=== PATIENT | female | born 1960 | race Caucasian/White ===

== ENCOUNTER → 2016-09-19 | Outpatient (CLI) | payer OTHER ==
--- NOTE | 2016-09-19 16:40 | US ---
EXAMINATION TYPE: US thyroid st tissue head/neck DATE OF EXAM: 09/19/2016 4:14 PM COMPARISON: NONE CLINICAL HISTORY: thyromegaly; hoarseness; on thyroid meds x years GLAND SIZE: Right Lobe: 3.2 x 0.8 x 0.8cm Overall Parenchyma: homogenous Left Lobe: 3.1 x 0.8 x 0.9cm Overall Parenchyma: homogeneous Isthmus Thickness: 0.3cm NODULES RIGHT: # of nodules measured on right: 0 LEFT: # of nodules measured on left: 1 1. 0.2 x 0.1 x 0.1 cm hyperechoic nodule at the mid pole with well-defined margins. This nodule is wide as is tall and shows no intranodular vascularity. Prior size: no prior ISTHMUS: # of nodules measured in the isthmus: 0 TECHNOLOGIST IMPRESSION: Bilateral neck scanned. Inferior to left thyroid is hyperechoic, solid, hyp erechoic structure may reflect small lymph node. To small to further characterize. Thyroid gland is overall small in size and fairly homogeneous echotexture. No suspicious nodules are evident IMPRESSION: Thyroid gland is small in size, no suspicious greater than 1 cm solid or cystic nodules are evident.
== END | disposition home or self-care (01) ==
LOC: RADUSWWP 15:25
PROVIDERS: ATTEND Family Medicine
DX: E01.0 Iodine-deficiency related diffuse (endemic) goiter (principal)
CPT/HCPCS: 76536

== ENCOUNTER 2017-02-21 18:56 | Inpatient (IN) | payer OTHER ==
--- NOTE | 2017-02-21 19:46 | XR ---
EXAMINATION TYPE: XR finger RT DATE OF EXAM: 02/21/2017 COMPARISON: NONE HISTORY: Cat bite injury with pain TECHNIQUE: 3 views of right thumb are obtained. FINDINGS: No acute fracture or dislocation is evident. Joint spaces are preserved. Overlying soft tis isaias is unremarkable without radiodense foreign body identified. IMPRESSION: Unremarkable study.
[2017-02-21 20:15] LABS: Basophils # (A) 0.1 k/uL (0-0.2); Basophils % (A) 1 %; CH 31.2; CHCM 34.3; Eosinophils # (A) 0.1 k/uL (0-0.7); Eosinophils % (A) 1 %; HCT 36.5 % (34.0-46.0); HDW 2.81; HGB 12.4 gm/dL (11.4-16.0); Luc # (Auto) 0.17; Luc % (Auto) 2; Lymphocytes # (A) 1.8 k/uL (1.0-4.8); Lymphocytes % (A) 24 %; MCH 31.1 pg (25.0-35.0); MCHC 33.9 g/dL (31.0-37.0); MCV 91.7 fL (80.0-100.0); Mean Platelet Volume 6.9; Monocytes # (A) 0.5 k/uL (0-1.0); Monocytes % (A) 6 %; Neutrophils # (A) 4.9 k/uL (1.3-7.7); Neutrophils % (A) 65 %; RBC 3.98 m/uL (3.80-5.40); RDW 14.5 % (11.5-15.5); WBC 7.6 k/uL (3.8-10.6); WBC (Perox) 7.57
--- NOTE | 2017-02-21 20:16 | ED ---
Animal Bite HPI - General Source: patient Mode of arrival: ambulatory Limitations: no limitations <Jordan Delvalle - Last Filed: 02/21/17 20:02> <Mason Smith - Last Filed: 02/21/17 21:15> - General Chief Complaint: Animal Bite Stated Complaint: cat bite 02/21/17 - History of Present Illness Initial Comments: Patient is a 56-year-old right-handed female presenting to the emergency department with chief complaint of cat bite to her right hand. Onset of bite approximately 24 hours ago. Patient states that her cat got outside and she was picking it up when it bit her hand. Patient states that she washed her hands with soap and water. Patient is now concerned because she has red streaks running up her right arm and has slight pain under her right armpit. Patient denies recent illness, fevers, nausea, vomiting, shortness of breath, chest pain, or abdominal pain. Patient's last tetanus shot was in 2012. Patient states that her cat is up-to-date on rabies shot. (Jordan Delvalle) - Related Data Allergies Allergy/AdvReac Type Severity Reaction Status Date / Time amoxicillin [From Augmentin] AdvReac Nausea & Verified 02/21/17 19:15 Vomiting clavulanic acid AdvReac Nausea & Verified 02/21/17 19:15 [From Augmentin] Vomiting Review of Systems ROS Other: All systems not noted in ROS Statement are negative. <Jordan Delvalle - Last Filed: 02/21/17 20:02> ROS Other: All systems not noted in ROS Statement are negative. <Mason Smith - Last Filed: 02/21/17 21:15> ROS Statement: Those systems with pertinent positive or pertinent negative responses have been documented in the HPI. Past Medical History Past Medical History: Fibromyalgia, Hypertension Additional Past Medical History / Comment(s): hypothyroidism, History of Any Multi-Drug Resistant Organisms: None Reported Past Surgical History: Hysterectomy Additional Past Surgical History / Comment(s): sinus suregery, left thumb surgery. Past Psychological History: No Psychological Hx Reported Smoking Status: Never smoker Past Alcohol Use History: None Reported Past Drug Use History: None Reported <Jordan Delvalle - Last Filed: 02/21/17 20:02> General Exam Limitations: no limitations Right Upper Arm exam: Present: normal inspection, full ROM, tenderness, erythema Elbow exam: Present: normal inspection, full ROM. Absent: tenderness, swelling Neuro motor exam: Present: wrist extension intact, thumb opposition intact, thumb IP flexion intact, thumb adduction intact, fingers 2-5 abduction intact Neurosensory exam: Present: 2-point discrimination, radial nerve intact, ulnar nerve intact, median nerve intact Vascular: Present: normal capillary refill, radial pulse, brachial pulse, ulnar pulse. Absent: vascular compromise <Jordan Delvalle - Last Filed: 02/21/17 20:02> <Mason Smith - Last Filed: 02/21/17 21:15> - General Exam Comments Initial Comments: GENERAL: Pt awake and alert, well-appearing, well-nourished, and in no acute distress. HEAD: Atraumatic, normocephalic. EYES: Pupils equal, round, and reactive to light, extraocular movements intact, sclera anicteric, conjunctiva are normal. ENT: Oropharynx clear without exudates. Moist mucous membranes. NECK:Normal range of motion, supple without lymphadenopathy or JVD. LUNGS: Breath sounds clear to auscultation bilaterally. No wheezes, rales, or rhonchi. HEART: Heart S1, S2, no S3 or S4. Regular rate and rhythm. No murmurs, rubs or gallops. ABDOMEN: Soft, nontender, nondistended, normoactive bowel sounds. No guarding, no rebound. No masses or organomegaly appreciated. EXTREMITIES: Right hand punctuate wound to palmar surface proximal to thumb with mild swelling and extensive erythema extending up patient's right ventral forearm. No purulent drainage noted. NEUROLOGICAL: Pt oriented x 3. No focal deficits noted. Strength and sensation grossly intact. PSYCH: Normal mood, normal affect. SKIN: Warm, dry. (Jordan Delvalle) Medical Decision Making <Jordan Delvalle - Last Filed: 02/21/17 20:02> - Lab Data Result diagrams: 02/21/17 20:00 02/21/17 20:00 <Mason Smith - Last Filed: 02/21/17 21:15> - Medical Decision Making Patient was bitten approximately 24 hours ago by the family. He since developed infection from dominant right thumb lymphangitis radiating up toward the elbow and mild beginning of lymphadenitis in the epitrochlear node. ( Mason Smith) - Lab Data Lab Results 02/21/17 02/21/17 Range/Units 20:00 20:00 WBC 7.6 (3.8-10.6) k/uL RBC 3.98 (3.80-5.40) m/uL Hgb 12.4 (11.4-16.0) gm/dL Hct 36.5 (34.0-46.0) % MCV 91.7 (80.0-100.0) fL MCH 31.1 (25.0-35.0) pg MCHC 33.9 (31.0-37.0) g/dL RDW 14.5 (11.5-15.5) % Plt Count 249 (150-450) k/uL Neutrophils % 65 % Lymphocytes % 24 % Monocytes % 6 % Eosinophils % 1 % Basophils % 1 % Neutrophils # 4.9 (1.3-7.7) k/uL Lymphocytes # 1.8 (1.0-4.8) k/uL Monocytes # 0.5 (0-1.0) k/uL Eosinophils # 0.1 (0-0.7) k/uL Basophils # 0.1 (0-0.2) k/uL Sodium 139 (137-145) mmol/L Potassium 3.0 L* (3.5-5.1) mmol/L Chloride 104 (98-107) mmol/L Carbon Dioxide 22 (22-30) mmol/L Anion Gap 13 mmol/L BUN 14 (7-17) mg/dL Creatinine 0.70 (0.52-1.04) mg/dL Est GFR (MDRD) Af Amer >60 (>60 ml/min/1.73 sqM) Est GFR (MDRD) Non-Af >60 (>60 ml/min/1.73 sqM) Glucose 98 (74-99) mg/dL Calcium 9.0 (8.4-10.2) mg/dL Total Bilirubin 0.4 (0.2-1.3) mg/dL AST 20 (14-36) U/L ALT 30 (9-52) U/L Alkaline Phosphatase 94 (38-126) U/L Total Protein 6.5 (6.3-8.2) g/dL Albumin 3.9 (3.5-5.0) g/dL Disposition <Jordan Delvalle - Last Filed: 02/21/17 20:02> <Mason Smith - Last Filed: 02/21/17 21:15> Clinical Impression: Cat bite Disposition: ADMITTED IP TO THIS HOSP Condition: Serious Instructions: Animal Bite (ED) Referrals: Mason Seo DO [Primary Care Provider] - 1-2 days
[2017-02-21 20:32] LABS: ALT 30 U/L (9-52); AST 20 U/L (14-36); Alkaline Phosphatase 94 U/L (38-126); Anion Gap 13 mmol/L; Blood Urea Nitrogen 14 mg/dL (7-17); Carbon Dioxide 22 mmol/L (22-30); Chloride 104 mmol/L (98-107); Glucose 98 mg/dL (74-99); Non-African American GFR(MDRD) >60 (>60 ml/min/1.73 sqM); Sodium 139 mmol/L (137-145); Total Bilirubin 0.4 mg/dL (0.2-1.3); Total Protein 6.5 g/dL (6.3-8.2)
[2017-02-21] MEDS ORDERED: metroNIDAZOLE-NS PMX 500 MG in SALINE 1 100ML.BAG IVPB STA (20:50)
[2017-02-21] MEDS ORDERED: LEVOFLOXACIN 500MG-D5W PMX 500 MG in DEXTROSE/WATER 1 100ML.BAG IVPB STA (20:50)
[2017-02-21] MEDS ORDERED: POTASSIUM CHLORIDE ER 20 MEQ TAB.ER PO STA (21:14)
[2017-02-21] MEDS ORDERED: ACETAMINOPHEN TAB 325 MG TAB PO PRN (21:15)
[2017-02-21] MEDS ORDERED: NALOXONE 0.4 MG/ML 1 ML VIAL IV PRN (21:15)
[2017-02-21] MEDS ORDERED: LORazepam 1 MG TAB PO PRN (23:08)
[2017-02-21] MEDS: HYDROcodone/APAP 10-325MG 1 EACH TAB PO PRN (23:10)
[2017-02-21 23:29] VITALS: BMI 30.7
[2017-02-22] MEDS: metroNIDAZOLE-NS PMX 500 MG in SALINE 1 100ML.BAG IVPB SCH ×3 (01:29→15:50)
[2017-02-22] MEDS: SODIUM CHLORIDE 0.9% 1,000 ML IV SCH ×2 (01:30→17:56)
[2017-02-22] MEDS: DICLOFENAC SODIUM GEL 100 GM TUBE TOPICAL PRN (05:18)
[2017-02-22 07:19] LABS: Basophils % (A) 0 %; CH 30.7; CHCM 33.6; Eosinophils % (A) 1 %; HCT 33.7 % (34.0-46.0); HDW 2.72; HGB 10.9 gm/dL (11.4-16.0); Luc # (Auto) 0.09; Luc % (Auto) 3; Lymphocytes # (A) 1.3 k/uL (1.0-4.8); Lymphocytes % (A) 35 %; MCH 29.9 pg (25.0-35.0); MCHC 32.5 g/dL (31.0-37.0); Mean Platelet Volume 6.9; Monocytes # (A) 0.3 k/uL (0-1.0); Monocytes % (A) 7 %; Neutrophils % (A) 54 %; RBC 3.66 m/uL (3.80-5.40); RDW 14.3 % (11.5-15.5); WBC 3.7 k/uL (3.8-10.6)
[2017-02-22] MEDS: LEVOTHYROXINE 50 MCG TAB PO SCH (07:57)
[2017-02-22] MEDS: HYDROCHLOROTHIAZIDE 12.5 MG CAP PO SCH (07:57)
[2017-02-22] MEDS: POTASSIUM CHLORIDE ER 20 MEQ TAB.ER PO SCH ×2 (07:58→20:48)
[2017-02-22] MEDS: HYDROcodone/APAP 10-325MG 1 EACH TAB PO PRN ×3 (07:58→20:48)
[2017-02-22] MEDS: LOSARTAN 50 MG TAB PO SCH (08:02)
[2017-02-22] MEDS: FAMOTIDINE 20 MG TAB PO SCH ×2 (09:00→22:04)
--- NOTE | 2017-02-22 16:31 | P.HPIM ---
History of Present Illness H&P Date: 02/22/17 Chief Complaint: Right arm redness after cat Bite This is a 56-year-old lady patient of Dr. Seo. She has underlying history of asthma fibromyalgia hypertension hypothyroidism and a heart murmur admitted to the hospital secondary to climbing up the right arm after cat bite 24 hours prior to admission. Patient's arm is painful red and is consistent with lymphangitis, no previous antibiotic prior to her admission, she mentions this is a house cat one of her granddaughters, up-to-date with her vaccination, the cat was anxious as there was a birthday republican going on and when she picked the Cat, it Bit her on the forearm.. She was seen in emergency room secondary to a wide line following lymph channels on the inner forearm. She was seen consultation by infectious disease Dr. Blank, and is receiving IV vancomycin and IV Levaquin patient has insulin she has GI side effects to Augmentin in the past Review of Systems Constitutional: Reports as per HPI, Denies anorexia, Denies chills, Denies chronic headaches, Denies chronic pain, Denies daytime sleepiness, Denies fatigue, Denies fever, Denies lethargy, Denies malaise, Denies night sweats, Denies poor appetite, Denies sweats, Denies weakness, Denies weight gain, Denies weight loss Ears, nose, mouth and throat: Reports as per HPI, Denies ant. neck pain, Denies bleeding gums, Denies dental pain, Denies dysphagia, Denies epistaxis, Denies headache, Denies hoarseness, Denies mouth pain, Denies nasal congestion, Denies nasal discharge, Denies neck fullness/pressure, Denies neck lump, Denies nose pain, Denies odynophagia, Denies post-nasal drip, Denies sinus pain, Denies sinus pressure, Denies swelling in mouth, Denies swelling in throat, Denies sore throat, Denies vertigo, Denies voice changes Cardiovascular: Reports as per HPI, Denies chest pain, Denies claudication, Denies decreased exercise tolerance, Denies dyspnea on exertion, Denies edema, Denies high blood pressure, Denies irregular heart beat, Denies leg edema, Denies lightheadedness, Denies orthopnea, Denies palpitations, Denies paroxysmal nocturnal dyspnea, Denies phlebitis, Denies rapid heart beat, Denies shortness of breath, Denies syncope Respiratory: Reports as per HPI, Denies congestion, Denies cough, Denies cough with sputum, Denies dyspnea, Denies excessive sputum, Denies hemoptysis, Denies home oxygen, Denies pain, Denies pain on inspiration, Denies pleurisy, Denies respiratory infections, Denies sleep apnea, Denies snoring, Denies wheezing Gastrointestinal: Reports as per HPI, Denies abdominal pain, Denies belching, Denies bloating, Denies BRBPR, Denies change in bowel habits, Denies coffee ground emesis, Denies constipation, Denies diarrhea, Denies dyspepsia, Denies early satiety, Denies excessive gas, Denies heartburn, Denies hematemesis, Denies hematochezia, Denies indigestion, Denies jaundice, Denies lactose intolerance, Denies loss of appetite, Denies melena, Denies nausea, Denies vomiting Genitourinary: Reports as per HPI, Denies abnormal vaginal bleeding, Denies decreased libido, Denies difficulty conceiving, Denies difficulty voiding, Denies dysmenorrhea, Denies dyspareunia, Denies dysuria, Denies flank pain, Denies genital sores, Denies hematuria, Denies hot flashes, Denies incomplete emptying, Denies kidney stones, Denies menorrhagia, Denies mixed incontinence, Denies nocturia, Denies pelvic pain, Denies post void dribbling, Denies , Denies prolapse symptoms, Denies stress incontinence, Denies urge incontinence , Denies urgency, Denies urinary frequency, Denies vaginal discharge, Denies vaginal dryness, Denies vaginal itching, Denies vaginal odor Menstruation: Reports as per HPI, Denies amenorrhea, Denies amenorrhea on BC, Denies currently menstrual, Denies cycle < 21 days, Denies cycle > 35 days, Denies cycle variable, Denies menses 1-7 days, Denies menses 8 or > days, Denies menses variable, Denies period heavy, Denies period light, Denies period normal, Denies period spotting, Denies post hysterectomy, Denies postmenopausal , Denies premenarcheal Musculoskeletal: Reports as per HPI, Denies arm numbness/tingling, Denies atrophy, Denies fractures, Denies frequent falls, Denies gait dysfunction, Denies hot joints, Denies leg numbness/tingling, Denies limitation of motion, Denies loss of height, Denies low back pain, Denies morning stiffness, Denies muscle cramps, Denies muscle weakness, Denies myalgias, Denies neck pain, Denies neck stiffness, Denies prior amputations, Denies redness of joints, Denies shooting arm pain, Denies shooting leg pain Integumentary: Reports as per HPI, Reports color changes, Reports rash, Reports striae, Reports wounds Neurological: Reports as per HPI, Denies aphasia, Denies ataxia, Denies balance difficulties, Denies burning pain, Denies change in mentation, Denies change in smell/taste, Denies change in speech, Denies confusion, Denies convulsions, Denies double vision, Denies gait dysfunction, Denies head injury, Denies headaches, Denies hearing difficulties, Denies lack of coordination, Denies loss of vision, Denies memory loss, Denies migraines, Denies motor disturbance, Denies numbness, Denies paralysis, Denies paresthesias, Denies seizures, Denies sensory deficit, Denies spasticity, Denies syncope, Denies tic, Denies tingling , Denies transient paralysis, Denies tremors, Denies vertigo, Denies weakness, Denies visual changes Psychiatric: Reports as per HPI, Denies anhedonia, Denies anxiety, Denies anxiety attacks, Denies change in appetite, Denies change in libido, Denies change in sleep habits, Denies confusion, Denies depression, Denies difficulty concentrating, Denies disorientation, Denies hallucinations, Denies hopelessness , Denies hypersomnia, Denies insomnia, Denies irritability, Denies memory loss, Denies mood swings, Denies paranoia, Denies sadness/tearfulness, Denies sleep disturbances, Denies suicidal ideation Endocrine: Reports as per HPI, Denies cold intolerance, Denies deepening of the voice, Denies excessive sweating, Denies excessive thirst, Denies fatigue, Denies flushing, Denies heat intolerance, Denies high blood sugars, Denies increase in ring/shoe/hat size, Denies low blood sugars, Denies nocturia, Denies palpitations, Denies polydipsia, Denies polyphagia, Denies polyuria, Denies proptosis, Denies recent glucocorticoid use, Denies thyroid mass, Denies weight change Hematologic/Lymphatic: Reports as per HPI Allergic/Immunologic: Reports as per HPI Past Medical History Past Medical History: Asthma, Fibromyalgia, Hypertension Additional Past Medical History / Comment(s): hypothyroidism, heart murmur History of Any Multi-Drug Resistant Organisms: None Reported Past Surgical History: Hysterectomy Additional Past Surgical History / Comment(s): sinus surgery X2, left thumb surgery. Additional Past Anesthesia/Blood Transfusion Reaction / Comment(s): reaction d\ t asthma- pt states nebulizer treatment was given that helped next administrations of anesthesia Past Psychological History: No Psychological Hx Reported Smoking Status: Never smoker Past Alcohol Use History: None Reported Past Drug Use History: None Reported - Past Family History Mother Family Medical History: Neurologic Disorder (Parkinson's) Father Family Medical History: No Reported History Brother(s) Family Medical History: Thyroid Disorder Sister(s) Family Medical History: No Reported History Daughter(s) Family Medical History: No Reported History Son(s) Family Medical History: No Reported History Medications and Allergies Home Medications Medication Instructions Recorded Confirmed Type Diclofenac Sodium Gel [Voltaren 2 gm TOPICAL BID PRN 02/21/17 02/22/17 History Gel] HYDROcodone/APAP 10-325MG [Byram 1 tab PO Q6HR PRN 02/21/17 02/22/17 History 10-325] Irbesartan/Hydrochlorothiazide 1 tab PO DAILY 02/21/17 02/22/17 History [Irbesartan-Hctz 150-12.5 mg Tb] LORazepam [Ativan] 2 mg PO TID PRN 02/21/17 02/22/17 History Levothyroxine Sodium [Synthroid] 50 mcg PO DAILY 02/21/17 02/22/17 History Sertraline [Zoloft] 50 mg PO DAILY PRN 02/21/17 02/22/17 History Budesonide-Formot 160-4.5 Mcg 2 puff INHALATION RT-BID PRN 02/22/17 02/22/17 History [Symbicort 160-4.5 Mcg Inhaler] Allergies Allergy/AdvReac Type Severity Reaction Status Date / Time amoxicillin [From Augmentin] AdvReac Nausea & Verified 02/22/17 08:43 Vomiting clavulanic acid AdvReac Nausea & Verified 02/22/17 08:43 [From Augmentin] Vomiting Physical Exam Vitals: Vital Signs Temp Pulse Pulse Resp BP BP Pulse Ox 02/22/17 08:00 62 16 02/22/17 01:15 98 F 62 16 145/79 99 02/21/17 23:13 97.3 F L 60 16 153/75 98 02/21/17 22:13 98.6 F 65 18 152/83 97 02/21/17 19:04 99.1 F 69 16 139/75 97 Intake and Output 02/21/17 02/22/17 02/22/17 22:59 06:59 14:59 Intake Total 200 950 120 Balance 200 950 120 Intake: Amount of Fluid Infused ( 200 ml) Intake, IV Titration 700 Amount Sodium Chloride 0.9% 1, 600 000 ml @ 80 mls/hr IV . [id number] TEENA Rx#:[id number] metroNIDAZOLE-NS PMX 500 100 mg In Saline 1 100ml.bag @ 100 mls/hr IVPB Q8HR TEENA Rx#:[id number] Oral 250 120 Other: Voiding Method Toilet Toilet # Voids 2 2 Weight 86.183 kg 86.183 kg 86.183 kg Patient Weight 02/23/17 06:59 Weight 86.183 kg - Constitutional General appearance: average body habitus, cooperative, no acute distress, obese - EENT Eyes: anicteric sclerae, EOMI, PERRLA, dentition normal ENT: NA/AT, normal oropharynx - Neck Neck: normal ROM - Respiratory Respiratory: bilateral: CTA, negative: dullness, rales, rhonchi, wheezing - Cardiovascular Rhythm: regular Heart sounds: normal: S1, S2 Abnormal Heart Sounds: no systolic murmur, no diastolic murmur, no rub, no S3 Gallop, no S4 Gallop, no click, no other - Gastrointestinal General gastrointestinal: normal bowel sounds, soft - Integumentary Integumentary: normal, rash (2 puncture barriga in the mid forearm, with streaks of red band wide, coming up from the distal radius To the elbow region,) - Neurologic Neurologic: CNII-XII intact - Psychiatric Psychiatric: A&O x's 3, appropriate affect, intact judgment & insight Results CBC & Chem 7: 02/22/17 06:16 02/21/17 20:00 Labs: Abnormal Lab Results - Last 24 Hours (Table) 02/21/17 02/22/17 Range/Units 20:00 06:16 WBC 3.7 L (3.8-10.6) k/uL RBC 3.66 L (3.80-5.40) m/uL Hgb 10.9 L (11.4-16.0) gm/dL Hct 33.7 L (34.0-46.0) % Potassium 3.0 L* (3.5-5.1) mmol/L Laboratory Results WBC 3.7 k/uL (3.8-10.6) L 02/22/17 06:16 RBC 3.66 m/uL (3.80-5.40) L 02/22/17 06:16 Hgb 10.9 gm/dL (11.4-16.0) L 02/22/17 06:16 Hct 33.7 % (34.0-46.0) L 02/22/17 06:16 MCV 92.0 fL (80.0-100.0) 02/22/17 06:16 MCH 29.9 pg (25.0-35.0) 02/22/17 06:16 MCHC 32.5 g/dL (31.0-37.0) 02/22/17 06:16 RDW 14.3 % (11.5-15.5) 02/22/17 06:16 Plt Count 193 k/uL (150-450) 02/22/17 06:16 Neutrophils % 54 % 02/22/17 06:16 Lymphocytes % 35 % 02/22/17 06:16 Monocytes % 7 % 02/22/17 06:16 Eosinophils % 1 % 02/22/17 06:16 Basophils % 0 % 02/22/17 06:16 Neutrophils # 2.0 k/uL (1.3-7.7) 02/22/17 06:16 Lymphocytes # 1.3 k/uL (1.0-4.8) 02/22/17 06:16 Monocytes # 0.3 k/uL (0-1.0) 02/22/17 06:16 Eosinophils # 0.0 k/uL (0-0.7) 02/22/17 06:16 Basophils # 0.0 k/uL (0-0.2) 02/22/17 06:16 Sodium 139 mmol/L (137-145) 02/21/17 20:00 Potassium 3.0 mmol/L (3.5-5.1) L* 02/21/17 20:00 Chloride 104 mmol/L (98-107) 02/21/17 20:00 Carbon Dioxide 22 mmol/L (22-30) 02/21/17 20:00 Anion Gap 13 mmol/L 02/21/17 20:00 BUN 14 mg/dL (7-17) 02/21/17 20:00 Creatinine 0.70 mg/dL (0.52-1.04) 02/21/17 20:00 Est GFR (MDRD) Af Amer >60 (>60 ml/min/1.73 sqM) 02/21/17 20:00 Est GFR (MDRD) Non-Af >60 (>60 ml/min/1.73 sqM) 02/21/17 20:00 Glucose 98 mg/dL (74-99) 02/21/17 20:00 Calcium 9.0 mg/dL (8.4-10.2) 02/21/17 20:00 Total Bilirubin 0.4 mg/dL (0.2-1.3) 02/21/17 20:00 AST 20 U/L (14-36) 02/21/17 20:00 ALT 30 U/L (9-52) 02/21/17 20:00 Alkaline Phosphatase 94 U/L (38-126) 02/21/17 20:00 Total Protein 6.5 g/dL (6.3-8.2) 02/21/17 20:00 Albumin 3.9 g/dL (3.5-5.0) 02/21/17 20:00 Thrombosis Risk Factor Assmnt - DVT/VTE Prophylaxis DVT/VTE Prophylaxis: Low risk, early ambulation encouraged - Choose All That Apply Each Factor Represents 1 point: Age 41-60 years Other Risk Factors: No Other congenital or acquired thrombophilia - If yes, enter type in comment: No Thrombosis Risk Factor Assessment Total Risk Factor Score: 1 Thrombosis Risk Factor Assessment Level: Low Risk Assessment and Plan Plan: 1. Cat bite cellulitis with ascending lymphangitis on involving the right upper extremity, lymphadenopathy noted, patient currently is on IV Levaquin and metronidazole, infectious disease consultation has been made pain control with hydrocodone, patient most likely will be placed on oral Augmentin she has some GI side effects which can be bypassed next 2. Asthma without any exacerbation on Symbicort 160 when necessary 3. Fibromyalgia stable on chronic Byram 4. Hypertension stable on irbesartan and hydrochlorothiazide 50/12.5 5. Immunization tetanus diphtheria vaccine given 2012, up-to-date
[2017-02-22] MEDS: AMPICILLIN-SULBACTAM 3 GM in SODIUM CHLORIDE 0.9% 100 ML IVPB SCH (17:53)
[2017-02-22] MEDS ORDERED: LEVOFLOXACIN 500MG-D5W PMX 500 MG in DEXTROSE/WATER 1 100ML.BAG IVPB SCH (21:00)
[2017-02-23] MEDS: AMPICILLIN-SULBACTAM 3 GM in SODIUM CHLORIDE 0.9% 100 ML IVPB SCH ×3 (05:35→11:21)
[2017-02-23] MEDS: HYDROcodone/APAP 10-325MG 1 EACH TAB PO PRN (05:36)
[2017-02-23 07:20] VITALS: BP 123/79; PULSE 62; RESP 14; TEMP 98.3
[2017-02-23 07:30] LABS: Basophils % (A) 1 %; CH 30.4; CHCM 33.3; Eosinophils % (A) 1 %; HDW 2.73; HGB 11.9 gm/dL (11.4-16.0); Luc % (Auto) 2; Lymphocytes # (A) 1.5 k/uL (1.0-4.8); Lymphocytes % (A) 35 %; MCH 30.1 pg (25.0-35.0); MCHC 32.9 g/dL (31.0-37.0); MCV 91.6 fL (80.0-100.0); Mean Platelet Volume 6.8; Monocytes # (A) 0.2 k/uL (0-1.0); Monocytes % (A) 6 %; Neutrophils # (A) 2.4 k/uL (1.3-7.7); Neutrophils % (A) 56 %; RBC 3.93 m/uL (3.80-5.40); RDW 14.3 % (11.5-15.5); WBC 4.2 k/uL (3.8-10.6); WBC (Perox) 4.38
[2017-02-23 07:51] LABS: Anion Gap 8 mmol/L; Blood Urea Nitrogen 7 mg/dL (7-17); Carbon Dioxide 27 mmol/L (22-30); Chloride 108 mmol/L (98-107); Glucose 110 mg/dL (74-99); Non-African American GFR(MDRD) >60 (>60 ml/min/1.73 sqM); Potassium 3.3 mmol/L (3.5-5.1); Sodium 143 mmol/L (137-145)
[2017-02-23] MEDS: LOSARTAN 50 MG TAB PO SCH (08:41)
[2017-02-23] MEDS: FAMOTIDINE 20 MG TAB PO SCH (08:41)
[2017-02-23] MEDS: LEVOTHYROXINE 50 MCG TAB PO SCH (08:41)
[2017-02-23] MEDS: HYDROCHLOROTHIAZIDE 12.5 MG CAP PO SCH (08:41)
[2017-02-23] MEDS: POTASSIUM CHLORIDE ER 20 MEQ TAB.ER PO SCH ×3 (08:42→15:09)
--- NOTE | 2017-02-23 09:02 | CONS ---
DATE OF CONSULTATION: 02/22/2017 Reason for consultation right hand cat bite cellulitis. HISTORY OF PRESENT ILLNESS: The patient is a 56-year-old female who has been bitten by her cat who just trying to get her inside. The cat did bite her on the base of the thumb with some surrounding laceration. The patient starting having some pain in that area, described to be dull, aching pain, about 2/10 and no radiation. The patient noted to have some swelling and redness and swelling to the forearm area. With that concern, the patient said she did clean the area with soap and water; however, with worsening swelling and redness, she did come to the [facility] ER. Patient evaluated by the ER physician. The patient did have x-rays of the right thumb which was unremarkable. She has been treated with Levaquin and Flagyl because of her allergy to amoxicillin which she described that when she takes it, ( ) on her stomach and ID was consulted for further recommendation regarding antibiotic therapy. REVIEW OF SYSTEMS: CONSTITUTIONAL: Positive for weakness and high-grade fever. EYES: No complaint. ENT: No complaint. RESPIRATORY: No complaint. CARDIOVASCULAR: No complaint. GENITOURINARY: No complaint. GASTROINTESTINAL: No complaint. MUSCULOSKELETAL: As per HPI. INTEGUMENT: As per HPI. PSYCHOLOGICAL: No complaint. NEUROLOGIC: No complaint. Past medical history significant for asthma, fibromyalgia and hypertension, hypothyroidism, heart murmur. PAST SURGICAL HISTORY: Hysterectomy, sinus surgery, lap band surgery. SOCIAL HISTORY: No history of smoking, drinking or drug use. FAMILY HISTORY: Mother with history of Parkinson disease, father with history of thyroid disorder. Allergies to AMOXICILLIN, more than a side effect than to true allergy, could be taken off the chart. MEDICATIONS: The patient is currently on Tylenol, Heyburn, diclofenac, Pepcid, hydrochlorothiazide, Synthroid, Ativan, Cozaar, Narcan, K-Dur, Levaquin and Flagyl. On examination, blood pressure 104/57 with a pulse of 69, temperature 98.1, she is 97% on room air. General description is a middle-aged female, up in the bed in no distress. No tachypnea or accessory muscle of respiration use. HEENT EXAMINATION: No pallor or scleral icterus. Oral mucous membrane is moist. NECK: Trachea central. There is no thyromegaly. LUNGS: Unlabored breathing. Clear to auscultation anteriorly. HEART: S1, S2. Regular rate and rhythm. ABDOMEN: Soft, no tenderness. EXTREMITIES: No edema of the feet. Examination of right hand, some swelling was noticed at the base of the thumb with some swelling, redness and scratch barriga on the palmar aspect of the forearm. No significant fluctuation or drainage was noticed. NEUROLOGICAL: Patient awake, alert, oriented x3. Mood and affect normal. LABS: Hemoglobin is 10.9 with a white count 3.7, potassium low at 3.0. Electrolytes are normal. Liver enzymes are normal with a BUN of 14, creatinine 0.70. X-rays of the hand as mentioned above. DIAGNOSTIC IMPRESSION AND PLAN: 1. Patient with right hand cat bite cellulitis in a patient who does have evidence of lymphangitis, more likely organism would be ( ) pathogen. 2. Patient reporting allergy to amoxicillin/Augmentin with more ( ) more of a side effect rather than a true allergy. PLAN: 1. Amoxicillin allergy should be taken off the chart. 2. Will start the patient on Unasyn 3 gm q.6h. 3. Depending on clinical response in the next 24 to 48 hours, ( ). Will follow this patient along with you.
[2017-02-23] MEDS: DICLOFENAC SODIUM GEL 100 GM TUBE TOPICAL PRN (11:14)
--- NOTE | 2017-02-23 13:31 | P.DS ---
Providers Date of admission: 02/21/17 21:15 Expected date of discharge: 02/23/17 Attending physician: Elli Aiken Consults: 02/21/17 21:15 Consult Physician Stat Consulting Provider: Thien Blank Consult Reason/Comments: Infected Bite left hand Do you want consulting provider notified?: Yes Primary care physician: Mason Seo [facility] Course: This is a 56-year-old lady patient of Dr. Seo. She has underlying history of asthma fibromyalgia hypertension hypothyroidism and a heart murmur admitted to the hospital secondary to climbing up the right arm after cat bite 24 hours prior to admission. Patient's arm is painful red and is consistent with lymphangitis, no previous antibiotic prior to her admission, she mentions this is a house cat one of her granddaughters, up-to-date with her vaccination, the cat was anxious as there was a birthday green party going on and when she picked the Cat, it Bit her on the forearm.. She was seen in emergency room secondary to a wide line following lymph channels on the inner forearm. She was seen consultation by infectious disease Dr. Blank, and is receiving IV vancomycin and IV Levaquin patient has insulin she has GI side effects to Augmentin in the past 02/23: Patient has been seen by Dr. Blank with recommendations to continue Unasyn for now and Augmentin for home. Blood culture showing no growth. Patient's cellulitis is improved and patient will be discharged home today in stable condition. Discharge diagnoses: 1. Cat bite cellulitis with ascending lymphangitis right upper extremity, lymphadenopathy noted 2. Asthma, mild intermittent, without any exacerbation 3. Fibromyalgia stable 4. Hypertension Discharge plan: Home Impression and plan of care have been directed as dictated by the signing physician. Nancy Morel nurse practitioner acting as scribe for signing physician. Patient Condition at Discharge: Good Plan - Discharge Summary New Discharge Prescriptions: New Amoxicillin/Potassium Clav [Augmentin 875-125 Tablet] 1 tab PO Q12HR #20 tab Continue HYDROcodone/APAP 10-325MG [Derby 10-325] 1 tab PO Q6HR PRN PRN Reason: Pain Levothyroxine Sodium [Synthroid] 50 mcg PO DAILY Irbesartan/Hydrochlorothiazide [Irbesartan-Hctz 150-12.5 mg Tb] 1 tab PO DAILY Diclofenac Sodium Gel [Voltaren Gel] 2 gm TOPICAL BID PRN PRN Reason: Pain LORazepam [Ativan] 2 mg PO TID PRN PRN Reason: Anxiety Sertraline [Zoloft] 50 mg PO DAILY PRN PRN Reason: Anxiety Budesonide-Formot 160-4.5 Mcg [Symbicort 160-4.5 Mcg Inhaler] 2 puff INHALATION RT-BID PRN PRN Reason: Shortness Of Breath Discharge Medication List Diclofenac Sodium Gel [Voltaren Gel] 2 gm TOPICAL BID PRN 02/21/17 [History] HYDROcodone/APAP 10-325MG [Derby 10-325] 1 tab PO Q6HR PRN 02/21/17 [History] Irbesartan/Hydrochlorothiazide [Irbesartan-Hctz 150-12.5 mg Tb] 1 tab PO DAILY 02/21/17 [History] LORazepam [Ativan] 2 mg PO TID PRN 02/21/17 [History] Levothyroxine Sodium [Synthroid] 50 mcg PO DAILY 02/21/17 [History] Sertraline [Zoloft] 50 mg PO DAILY PRN 02/21/17 [History] Budesonide-Formot 160-4.5 Mcg [Symbicort 160-4.5 Mcg Inhaler] 2 puff INHALATION RT-BID PRN 02/22/17 [History] Amoxicillin/Potassium Clav [Augmentin 875-125 Tablet] 1 tab PO Q12HR #20 tab 08/30 [Rx] Follow up Appointment(s)/Referral(s): Mason Seo DO [Primary Care Provider] - 1 Week Thien Blank MD [STAFF PHYSICIAN] - 03/05/17 11:15 am (Patient needs to obtain prior authorization) Ambulatory/Diagnostic Orders: Basic Metabolic Panel [LAB.AMB] Location: Determined By Patient Complete Blood Count w/diff [LAB.AMB] Location: Determined By Patient Patient Instructions/Handouts: Animal Bite (ED) Discharge Disposition: HOME SELF-CARE
--- NOTE | 2017-02-23 16:57 | PN ---
DATE OF SERVICE: 02/23/2017 REASON FOR FOLLOWUP: Right hand cat bite cellulitis. INTERVAL HISTORY: The patient is afebrile. She is feeling better. Overall pain and swelling of the right forearm area has improved. The patient denies significant chest pain, shortness of breath or cough. No abdominal pain or any diarrhea. On examination, blood pressure 123/79 with a pulse of 52, temperature 96.3. She is 97% on room air. General description is a middle-aged female lying in bed in no distress. RESPIRATORY SYSTEM: Unlabored breathing. Clear to auscultation anteriorly. HEART: S1, S2. Regular rate and rhythm. ABDOMEN: Soft. Right arm swelling and redness have improved. LABS: Hemoglobin 11.9, white count of 4.2. BUN of 7, creatinine 0.62. DIAGNOSTIC IMPRESSION AND PLAN: Patient with right thumb cat bite cellulitis with cellulitis extending to the forearm. The patient seems to have shown overall improvement on Unasyn. Antibiotic will be switched over to Augmentin for another 10 days with outpatient followup.
== END 2017-02-23 15:30 | disposition home or self-care (01) | DRG 603 ==
LOC: EC 18:56 → 3SUR 21:15
PROVIDERS: ADMIT Family Medicine; ATTEND Family Medicine
DX: L03.011 Cellulitis of right finger (principal); I10 Essential (primary) hypertension; E03.9 Hypothyroidism, unspecified; I89.1 Lymphangitis; M79.7 Fibromyalgia; J45.20 Mild intermittent asthma, uncomplicated; S61.451A Open bite of right hand, initial encounter; Z90.710 Acquired absence of both cervix and uterus; Z98.84 Bariatric surgery status; Z88.0 Allergy status to penicillin; Z79.51 Long term (current) use of inhaled steroids; Z79.899 Other long term (current) drug therapy; Y92.007 Garden or yard of unspecified non-institutional (private) residence as the place of occurrence of the external cause; W55.01XA Bitten by cat, initial encounter
CPT/HCPCS: 36415; 80048; 80053; 85025; 87040

== ENCOUNTER → 2017-03-02 | Outpatient (CLI) | payer OTHER ==
[2017-03-02 12:55] LABS: Basophils % (A) 1 %; CH 30.6; CHCM 33.3; Eosinophils % (A) 1 %; HCT 37.3 % (34.0-46.0); HDW 2.69; HGB 12.3 gm/dL (11.4-16.0); Luc # (Auto) 0.08; Luc % (Auto) 2; Lymphocytes # (A) 1.5 k/uL (1.0-4.8); Lymphocytes % (A) 32 %; MCH 30.6 pg (25.0-35.0); MCHC 33.1 g/dL (31.0-37.0); MCV 92.5 fL (80.0-100.0); Mean Platelet Volume 7.2; Monocytes # (A) 0.2 k/uL (0-1.0); Monocytes % (A) 4 %; Neutrophils # (A) 2.9 k/uL (1.3-7.7); Neutrophils % (A) 61 %; RBC 4.04 m/uL (3.80-5.40); RDW 14.1 % (11.5-15.5); WBC 4.7 k/uL (3.8-10.6)
[2017-03-02 13:01] LABS: Anion Gap 10 mmol/L; Blood Urea Nitrogen 9 mg/dL (7-17); Calcium 9.2 mg/dL (8.4-10.2); Carbon Dioxide 27 mmol/L (22-30); Chloride 105 mmol/L (98-107); Glucose 123 mg/dL (74-99); Non-African American GFR(MDRD) >60 (>60 ml/min/1.73 sqM); Sodium 142 mmol/L (137-145)
[2017-03-02 13:20] LABS: Potassium 2.9 mmol/L (3.5-5.1)
== END | disposition home or self-care (01) ==
LOC: LABWHC1 12:20
PROVIDERS: ATTEND Nurse Practitioner Family
DX: L03.90 Cellulitis, unspecified (principal); E87.6 Hypokalemia
CPT/HCPCS: 36415; 80048; 85025

== ENCOUNTER 2018-06-18 20:46 | Emergency (ER) | payer OTHER ==
--- NOTE | 2018-06-18 21:50 | XR ---
EXAMINATION TYPE: XR foot complete LT DATE OF EXAM: 06/18/2018 COMPARISON: NONE HISTORY: Foot pain TECHNIQUE: 3 views FINDINGS: There is an Achilles calcaneal spur. Metatarsals are intact. I see no fracture nor dislocat ion. IMPRESSION: Calcaneal spurring. No fracture seen.
--- NOTE | 2018-06-18 21:50 | XR ---
EXAMINATION TYPE: XR ankle complete LT DATE OF EXAM: 06/18/2018 COMPARISON: NONE HISTORY: Ankle pain TECHNIQUE: 3 views FINDINGS: Ankle mortise is anatomic. I see no fracture nor dislocation. There is Achilles calcaneal s purring. There is minimal soft tissue swelling. IMPRESSION: Soft tissue swelling. No fracture.
[2018-06-18] MEDS ORDERED: ACETAMINOPHEN TAB 500 MG TAB PO STA (22:01)
[2018-06-18] MEDS ORDERED: IBUPROFEN 800 MG TAB PO STA (22:01)
--- NOTE | 2018-06-18 22:01 | ED ---
Lower Extremity Injury HPI - General Chief Complaint: Extremity Injury, Lower Stated Complaint: Foot/ankle injury Time Seen by Provider: 06/18/18 21:03 Source: patient Mode of arrival: ambulatory Limitations: no limitations - History of Present Illness Initial Comments: This is a 57-year-old female the ER for evaluation patient complains of left ankle pain. [place] she stepped wrong and had a twisting of his left ankle. No other injury noted. Patient is able to bear weight is complaining of pain and swelling MD Complaint: ankle injury, foot injury -: hour(s) Injury: Ankle: Left, Foot: Left Place: home Severity: mild Severity scale (1-10): 2 Improves With: nothing Worsens With: nothing Context: fall Other Symptoms: loss of consciousness Associated Symptoms: able to partially bear weight - Related Data Home Medications Medication Instructions Recorded Confirmed Irbesartan/Hydrochlorothiazide 1 tab PO DAILY 02/21/17 06/18/18 [Irbesartan-Hctz 150-12.5 mg Tb] Acetaminophen Tab [Tylenol Tab] 650 mg PO Q6H 06/18/18 06/18/18 DULoxetine HCL [Cymbalta] 60 mg PO AC-LUNCH 06/18/18 06/18/18 Levothyroxine Sodium [Synthroid] 75 mcg PO DAILY 06/18/18 06/18/18 Allergies Allergy/AdvReac Type Severity Reaction Status Date / Time lactose AdvReac Itching Verified 06/18/18 21:27 pregabalin [From Lyrica] AdvReac BLURRY Verified 06/18/18 21:28 VISION Review of Systems ROS Statement: Those systems with pertinent positive or pertinent negative responses have been documented in the HPI. ROS Other: All systems not noted in ROS Statement are negative. Past Medical History Past Medical History: Asthma, Fibromyalgia, Hypertension, Thyroid Disorder Additional Past Medical History / Comment(s): hypothyroidism, heart murmur History of Any Multi-Drug Resistant Organisms: None Reported Past Surgical History: Hysterectomy, Orthopedic Surgery Additional Past Surgical History / Comment(s): sinus surgery X2, left thumb surgery. , eye surgery Additional Past Anesthesia/Blood Transfusion Reaction / Comment(s): reaction d\ t asthma- pt states nebulizer treatment was given that helped next administrations of anesthesia Past Psychological History: Anxiety, Depression Smoking Status: Never smoker Past Alcohol Use History: None Reported Past Drug Use History: None Reported - Past Family History Mother Family Medical History: Neurologic Disorder (Parkinson's) Father Family Medical History: No Reported History Brother(s) Family Medical History: Thyroid Disorder Sister(s) Family Medical History: No Reported History Daughter(s) Family Medical History: No Reported History Son(s) Family Medical History: No Reported History General Exam - General Exam Comments Initial Comments: Mild tenderness and edema to left lower extremity Limitations: no limitations General appearance: alert, in no apparent distress Head exam: Present: atraumatic, normocephalic, normal inspection Eye exam: Present: normal appearance, PERRL, EOMI. Absent: scleral icterus, conjunctival injection, periorbital swelling ENT exam: Present: normal exam, mucous membranes moist Neck exam: Present: normal inspection. Absent: tenderness, meningismus, lymphadenopathy Respiratory exam: Present: normal lung sounds bilaterally. Absent: respiratory distress, wheezes, rales, rhonchi, stridor Cardiovascular Exam: Present: regular rate, normal rhythm, normal heart sounds. Absent: systolic murmur, diastolic murmur, rubs, gallop, clicks GI/Abdominal exam: Present: soft, normal bowel sounds. Absent: distended, tenderness, guarding, rebound, rigid Extremities exam: Present: normal inspection, full ROM, normal capillary refill. Absent: tenderness, pedal edema, joint swelling, calf tenderness Back exam: Present: normal inspection Neurological exam: Present: alert, oriented X3, CN II-XII intact Psychiatric exam: Present: normal affect, normal mood Skin exam: Present: warm, dry, intact, normal color. Absent: rash Course Vital Signs 06/18/18 06/18/18 20:50 23:03 Temperature 98.2 F 98.0 F Pulse Rate 83 69 Respiratory 16 18 Rate Blood Pressure 137/79 135/76 O2 Sat by Pulse 98 97 Oximetry - Reevaluation(s) Reevaluation #1: Patient is able to ambulate Medical Decision Making - Medical Decision Making 57 female the ER with left ankle sprain, x-ray negative for fracture. Patient can be discharged home - Radiology Data Radiology results: report reviewed (X-ray left ankle x-ray left foot negative for fracture), image reviewed Disposition Clinical Impression: Left ankle sprain Disposition: HOME SELF-CARE Condition: Good Instructions: Ankle Sprain (ED) Is patient prescribed a controlled substance at d/c from ED?: No Referrals: Mason Seo DO [Primary Care Provider] - 1-2 days
[2018-06-18 23:04] VITALS: BP 135/76; PULSE 69; RESP 18; TEMP 98
== END 2018-06-18 23:23 | disposition home or self-care (01) ==
LOC: EC 20:46
DX: S93.402A Sprain of unspecified ligament of left ankle, initial encounter (principal); I10 Essential (primary) hypertension; F41.9 Anxiety disorder, unspecified; F32.9 Major depressive disorder, single episode, unspecified; E03.9 Hypothyroidism, unspecified; Z79.899 Other long term (current) drug therapy; Z88.8 Allergy status to other drugs, medicaments and biological substances; X50.1XXA Overexertion from prolonged static or awkward postures, initial encounter
CPT/HCPCS: 73610; 73630; 99283; L4350

== ENCOUNTER → 2018-06-25 | Outpatient (CLI) | payer OTHER ==
--- NOTE | 2018-06-25 17:00 | XR ---
EXAMINATION TYPE: XR ankle complete LT DATE OF EXAM: 06/25/2018 COMPARISON: NONE HISTORY: Pain and bruising TECHNIQUE: 3 views FINDINGS: Ankle mortise is anatomic. I see no fracture nor dislocation. There is an Achilles calcanea l spur. There is no evidence of a fracture. IMPRESSION: Calcaneal spurring. No fracture seen.
== END ==
LOC: RADXRMAIN 16:17
PROVIDERS: ATTEND Family Medicine
DX: M77.32 Calcaneal spur, left foot (principal)

== ENCOUNTER → 2018-12-17 | Day surgery (SDC) | payer OTHER ==
[2018-12-15 18:16] VITALS: BMI 30.7
[~2018-12-17] MED LIST: LACTATED RINGERS 1,000 ML IV SCH; LIDOCAINE 1% 20 ML VIAL (10MG/ML) FOR IV START INTRADERMA PRN; LIDOCAINE 1% INJ 10MG/ML (20 ML MDV) ONE; PROPOFOL 10 MG/ML 20 ML VIAL IV ONE
[2018-12-17 09:58] VITALS: RESP 16; TEMP 96.9
--- NOTE | 2018-12-17 11:35 | P.PCN ---
Date of Procedure: 12/17/18 Procedure(s) Performed: BRIEF HISTORY: Patient is a 58-year-old, pleasant, white female, scheduled for an upper endoscopy as a part of evaluation of long-standing history of GERD. Recently has been having throat irritation, globus sensation in her throat and chronic cough for the last 6 months duration. She was started on Protonix 40 mg daily about 3 weeks ago and symptoms are gradually improving. He scheduled for an upper endoscopy to rule out complicated GERD.. PROCEDURE PERFORMED: Esophagogastroduodenoscopy with GERD. PREOPERATIVE DIAGNOSIS: GERD/chronic cough/globus pharyngeus. IV sedation per anesthesia. PROCEDURE: After informed consent was obtained, the patient was brought into the endoscopy unit. IV sedation was administered by Anesthesia under continuous monitoring. Initially the Olympus GIF-140 video endoscope was inserted into the mouth. Esophagus intubated without any difficulty. It was gradually advanced into the stomach and duodenum and carefully examined. The bulb and the second part of the duodenum appeared normal. The scope at this time was withdrawn to the stomach, adequately insufflated with air, and upon careful examination, mucosa of the antrum, had mild gastritis and biopsies were done from this area. The body, cardia and the fundus appeared normal. The scope was then withdrawn into the esophagus. The GE junction was located at 39 cm from the incisors. The esophagus appeared normal. There were no erosions or ulcerations seen, multiple biopsies were done from the esophagus and the patient tolerated the procedure well. IMPRESSION: 1. Mild antral gastritis. 2. And normal-appearing esophagus with no evidence of esophagitis or esophageal stricture. RECOMMENDATIONS: The findings of this examination were discussed with the patient as his family. She was advised to follow with the biopsy results. In the meantime since his symptoms are suggestive of GERD she can continue with Protonix 40 mg daily and follow antireflux measures.
[2018-12-17 12:03] VITALS: BP 121/73; PULSE 65
== END | disposition home or self-care (01) ==
LOC: ORWHC2ENDO 09:24
PROVIDERS: ATTEND Internal Medicine Gastroenterology
DX: K29.50 Unspecified chronic gastritis without bleeding (principal); K21.9 Gastro-esophageal reflux disease without esophagitis; I10 Essential (primary) hypertension; J45.909 Unspecified asthma, uncomplicated; M79.7 Fibromyalgia; Z79.890 Hormone replacement therapy; Z88.8 Allergy status to other drugs, medicaments and biological substances; Z79.899 Other long term (current) drug therapy
CPT/HCPCS: 88305; 43239; J2001; J2704

== ENCOUNTER → 2022-08-22 | Outpatient (CLI) | payer OTHER ==
--- NOTE | 2022-08-25 08:55 | MM ---
Reason for Exam: Screening (asymptomatic). Last mammogram was performed 10 year(s) and 4 month(s) ago. Patient History: Menarche at age 12. First Full-Term at age 19. Hysterectomy at age 38. Postmenopausal. Paternal aunt had breast cancer. Risk Values: Aisha 5 year model risk: 1.1%. NCI Lifetime model risk: 5.2%. Prior Study Comparison: 11/26/1999 Bilateral Screening Mammogram, [facility]. 04/26/2012 Bilateral Screening Mammogram, [facility]. Tissue Density: The breast tissue is heterogeneously dense. This may lower the sensitivity of mammography. Findings: Analyzed By CAD. There is no suspicious group of microcalcifications or new suspicious mass in either breast. Overall Assessment: Negative, BI-RAD 1 Management: Screening Mammogram of both breasts in 1 year. A clinical breast exam by your physician is recommended on an annual basis and results should be correlated with mammographic findings. [facility] will attempt to contact patient to return for supplemental views and ultrasound if indicated. Electronically signed and approved by: Jason Vazquez DO
== END | disposition home or self-care (01) ==
LOC: RADMAMWWP 07:46
PROVIDERS: ATTEND Obstetrics & Gynecology
DX: Z12.31 Encounter for screening mammogram for malignant neoplasm of breast (principal); Z80.3 Family history of malignant neoplasm of breast; Z78.0 Asymptomatic menopausal state
CPT/HCPCS: 77067

== ENCOUNTER 2024-03-12 17:08 | Emergency (ER) | payer MEDICARE, OTHER ==
[2024-03-12] MEDS: LORazepam 2 MG/ML INJ IV STA (17:11)
[2024-03-12 17:18] VITALS: TEMP 97.9
--- NOTE | 2024-03-12 17:30 | ED ---
General Adult HPI - General Chief complaint: Seizure Stated complaint: Seizure Time Seen by Provider: 03/12/24 17:10 Source: patient Mode of arrival: EMS Limitations: altered mental status - History of Present Illness Initial comments: Dictation was produced using [employer] dictation software. please excuse any grammatical, word or spelling errors. Chief Complaint: 63-year-old female with seizure History of Present Illness: Patient 63-year-old female. HPI obtained from EMS states that they were called today after a 1 to 2-minute seizure. EMS was ca lled by patient's . Patient allegedly has history of migraines. Patient does not have a history of seizures. Around to the emergency department patient was postictal per EMS. Per EMS did not have much information on patient's medical history. Patient obtunded and postictal unable to provide history present illness upon initial evaluation. Unable to obtain ROS secondary to mental status - Related Data Home Medications Medication Instructions Recorded Confirmed Irbesartan/Hydrochlorothiazide 1 tab PO QAM 02/21/17 12/17/18 [Irbesartan-Hctz 150-12.5 mg Tb] Levothyroxine Sodium [Synthroid] 75 mcg PO DAILY 06/18/18 12/17/18 LORazepam [Ativan] 1 mg PO HS 12/15/18 12/17/18 Multivitamins, Thera [Multivitamin 1 tab PO DAILY 12/15/18 12/17/18 (formulary)] Pantoprazole Sodium [Protonix] 40 mg PO BID 12/15/18 12/17/18 Allergies Allergy/AdvReac Type Severity Reaction Status Date / Time lactose AdvReac Itching Verified 03/12/24 17:09 pregabalin [From Lyrica] AdvReac BLURRY Verified 03/12/24 17:09 VISION Review of Systems ROS Statement: Those systems with pertinent positive or pertinent negative responses have been documented in the HPI. ROS Other: All systems not noted in ROS Statement are negative. Past Medical History Past Medical History: Asthma, Fibromyalgia, GERD/Reflux, Hypertension, Thyroid Disorder Additional Past Medical History / Comment(s): hypothyroidism, heart murmur, chronic dry cough since June, feels like something stuck in throat History of Any Multi-Drug Resistant Organisms: None Reported Past Surgical History: Hysterectomy, Orthopedic Surgery Additional Past Surgical History / Comment(s): sinus surgery X2, left thumb surg abraham, eye surgery, EGD, colonoscopy Past Anesthesia/Blood Transfusion Reactions: Previous Problems w/ Anesthesia Additional Past Anesthesia/Blood Transfusion Reaction / Comment(s): problem w/first endoscopy-felt like bad asthma attack- coughing & couldn't catch breath- was told was "muscle spasm"-next time had scope had nebulizer tx. beforehand & had no problems Past Psychological History: Anxiety, Depression Past Alcohol Use History: None Reported Past Drug Use History: None Reported - Past Family History Mother Family Medical History: Neurologic Disorder Father Family Medical History: No Reported History Brother(s) Family Medical History: Thyroid Disorder Sister(s) Family Medical History: No Reported History Daughter(s) Family Medical History: No Reported History Son(s) Family Medical History: No Reported History General Exam - General Exam Comments Initial Comments: PHYSICAL EXAM: General Impression: Postictal, obtunded HEENT: Normocephalic atraumatic, extra-ocular movements intact, pupils equal and reactive to light bilaterally, mucous membranes moist. Cardiovascular: Heart regular rate and rhythm Chest: Clear to auscultation bilaterally, no retractions, no tachypnea Abdomen: abdomen soft, non-tender, non-distended, no organomegaly Musculoskeletal: Pulses present and equal in all extremities, no peripheral edema Neurological: Postictal Skin: Intact with no visualized rashes Limitations: altered mental status Course Vital Signs 03/12/24 03/12/24 03/12/24 17:12 17:35 17:53 Temperature 97.9 F Pulse Rate 90 104 H Respiratory 20 18 Rate Blood Pressure 149/56 137/71 O2 Sat by Pulse 97 98 100 Oximetry 03/12/24 18:00 Temperature Pulse Rate 100 Respiratory 18 Rate Blood Pressure 147/80 O2 Sat by Pulse 96 Oximetry - Reevaluation(s) Reevaluation #1: 03/12/24 17:30 Patient had seizure in the ER. Patient given 2 mg of IV Ativan along with 1 g of Keppra. Medical Decision Making - Medical Decision Making Critical care time 33 minutes for status epilepticus. Was pt. sent in by a medical professional or institution (, PA, DERMATOPATHOLOGIST, urgent care, hospital, or skilled nursing...) When possible be specific @ -No Did you speak to anyone other than the patient for history (EMS, parent, family, police, friend...)? What history was obtained from this source @ -No Did you review nursing and triage notes (agree or disagree)? Why? @ -I reviewed and agree with nursing and triage notes Were old charts reviewed (outside hosp., previous admission, EMS record, old EKG, old radiological studies, urgent care reports/EKG's, skilled nursing records)? Report findings @ -No old charts were reviewed Differential Diagnosis (chest pain, altered mental status, abdominal pain women, abdominal pain men, vaginal bleeding, musculoskeletal, weakness, fever, dyspnea, syncope, headache, dizziness, GI bleed, back pain, seizure, CVA, palpatations, mental health)? @ -Differential Seizure: Recurrent seizure disorder, febrile seizure, alcohol withdrawal, stimulants, meningitis, encephalitis, intercranial hemorrhage, intracranial tumor, stroke, eclampsia, thyrotoxicosis, hypocalcemia, hyponatremia, hypernatremia, hypomagnesemia, psychogenic, this is not meant to be an all-inclusive list. EKG interpreted by me (3pts min.). @ -My EKG interpretation: Ventricular rate 102, sinus tachycardia, 144, cures 90, QTc 420. No AR prolongation, no QTC prolongation, no ST or T-wave changes noted. Overall, this EKG is unremarkable X-rays interpreted by me (1pt min.). @ -None done CT interpreted by me (1pt min.). @ -CT scan of the brain shows hypodense lesion in the left parietal lobe. U/S interpreted by me (1pt. min.). @ -None done What testing was considered but not performed or refused? (CT, X-rays, U/S, labs)? Why? @ -None What meds were considered but not given or refused? Why? @ -None Was smoking cessation discussed for >3mins.? @ -No Were there social determinants of health that impacted care today? How? (Homelessness, low income, unemployed, alcoholism, drug addiction, transportation, low edu. Level, literacy, decrease access to med. care, alf, rehab)? @ -No Was there de-escalation of care discussed even if they declined (Discuss DNR or withdrawal of care, Hospice)? DNR status @ -No What co-morbidities impacted this encounter? (DM, HTN, Smoking, COPD, CAD, Cancer, CVA, ARF, Chemo, Hep., AIDS, mental health diagnosis, sleep apnea, morbid obesity)? @ -None Was patient admitted / discharged? Hospital course, mention meds given and route, prescriptions, significant lab abnormalities, going to OR and other pertinent info. @ -63-year-old female presents to the ER after seizure. Patient is a history of seizure. Vital signs stable. Patient postictal. She did have another seizure in the ER. Patient given Keppra, Ativan. CT scan shows brain mass. Patient given Decadron. Will be transferred to [facility] accepting physician is Dr. Kiran. Did you discuss the management of the patient with other professionals (professionals i.e. , PA, DERMATOPATHOLOGIST, lab, RT, psych nurse, social media assistant, sales representative marine supplies, teacher, workplace rehabilitation officer, showcase trimmer)? Give summary @ -Case discussed with [facility] transfer line. Accepting is Dr. Kiran Was critical care preformed (if so, how long)? @ yes, 33 minutes for status epilepticus Undiagnosed new problem with uncertain prognosis? @ -No Drug Therapy requiring intensive monitoring for toxicity (Heparin, Nitro, Insulin, Cardizem)? @ -No Were any procedures done? @ -No Diagnosis/symptom? Acute, or Chronic, or Acute on Chronic? Uncomplicated (without systemic symptoms) or Complicated (systemic symptoms)? @ -Brain mass new onset seizure Side effects of treatment? @ -No Exacerbation, Progression, or Severe Exacerbation? @ -No Poses a threat to life or bodily function? How? (Chest pain, USA, NC, pneumonia, PE, COPD, DKA, ARF, appy, cholecystitis, CVA, Diverticulitis, Homicidal, Suicidal, threat to staff... and all critical care pts) @ -yes - Lab Data Result diagrams: 03/12/24 17:22 03/12/24 17:22 Lab Results 03/12/24 03/12/24 03/12/24 Range/Units 17:22 17:22 17: WBC 12.5 H (3.8-10.6) k/uL RBC 4.28 (3.80-5.40) m/uL Hgb 13.0 (11.4-16.0) gm/dL Hct 41.8 (34.0-46.0) % MCV 97.8 (80.0-100.0) fL MCH 30.5 (25.0-35.0) pg MCHC 31.2 (31.0-37.0) g/dL RDW 13.4 (11.5-15.5) % Plt Count 277 (150-450) k/uL MPV 7.7 Neutrophils % 80 % Lymphocytes % 16 % Monocytes % 2 % Eosinophils % 0 % Basophils % 0 % Neutrophils # 10.0 H (1.3-7.7) k/uL Lymphocytes # 2.0 (1.0-4.8) k/uL Monocytes # 0.3 (0-1.0) k/uL Eosinophils # 0.0 (0-0.7) k/uL Basophils # 0.0 (0-0.2) k/uL PT 9.9 L (10.0-12.5) sec INR 0.9 (<1.2) APTT 21.4 L (22.0-30.0) sec Sodium 137 (137-145) mmol/L Potassium 3.7 (3.5-5.1) mmol/L Chloride 103 (98-107) mmol/L Carbon Dioxide 17 L (22-30) mmol/L Anion Gap 17 mmol/L BUN 19 H (7-17) mg/dL Creatinine 0.70 (0.52-1.04) mg/dL Est GFR (CKD-EPI)AfAm >90 (>60 ml/min/1.73 sqM) Est GFR (CKD-EPI)NonAf >90 (>60 ml/min/1.73 sqM) Glucose 173 H (74-99) mg/dL Calcium 9.1 (8.4-10.2) mg/dL Total Bilirubin 0.4 (0.2-1.3) mg/dL AST 26 (14-36) U/L ALT 27 (4-34) U/L Alkaline Phosphatase 94 (38-126) U/L Total Protein 6.4 (6.3-8.2) g/dL Albumin 4.0 (3.5-5.0) g/dL Disposition Clinical Impression: Brain mass Disposition: OTHER INSTITUTION NOT DEFINED Condition: Serious Referrals: Mason Seo DO [Primary Care Provider] - 1-2 days - Out of Hospital Transfer - Req. Specs Out of Hospital Transfer - Requested Specifics: Other Emergency Center ([facility]
[2024-03-12 17:38] LABS: Basophils % (A) 0 %; Eosinophils % (A) 0 %; HCT 41.8 % (34.0-46.0); Lymphocytes % (A) 16 %; MCH 30.5 pg (25.0-35.0); MCHC 31.2 g/dL (31.0-37.0); MCV 97.8 fL (80.0-100.0); Mean Platelet Volume 7.7; Monocytes # (A) 0.3 k/uL (0-1.0); Monocytes % (A) 2 %; Neutrophils % (A) 80 %; Platelet Count 277 k/uL (150-450); RBC 4.28 m/uL (3.80-5.40); RDW 13.4 % (11.5-15.5); WBC 12.5 k/uL (3.8-10.6)
[2024-03-12] MEDS: DEXAMETHASONE SOD PHOSPHATE 10 MG/ML 1 ML VIAL IV STA (17:44)
[2024-03-12] MEDS: SODIUM CHLORIDE 0.9% 1,000 ML IV STA (17:44)
[2024-03-12] MEDS: levETIRAcetam IV 500 MG/5 ML VIAL IVP STA (17:44)
[2024-03-12 17:51] LABS: ALT 27 U/L (4-34); AST 26 U/L (14-36); African American GFR (CKD) >90 (>60 ml/min/1.73 sqM); Alkaline Phosphatase 94 U/L (38-126); Anion Gap 17 mmol/L; Blood Urea Nitrogen 19 mg/dL (7-17); Calcium 9.1 mg/dL (8.4-10.2); Carbon Dioxide 17 mmol/L (22-30); Chloride 103 mmol/L (98-107); Glucose 173 mg/dL (74-99); Non-African American GFR(CKD) >90 (>60 ml/min/1.73 sqM); Potassium 3.7 mmol/L (3.5-5.1); Sodium 137 mmol/L (137-145); Total Bilirubin 0.4 mg/dL (0.2-1.3); Total Protein 6.4 g/dL (6.3-8.2)
[2024-03-12 18:00] LABS: INR 0.9 (<1.2); Partial Thromboplastin Time 21.4 sec (22.0-30.0); Prothrombin Time 9.9 sec (10.0-12.5)
--- NOTE | 2024-03-12 18:00 | CT ---
EXAMINATION TYPE: CT brain wo con DATE OF EXAM: 03/12/2024 COMPARISON: None HISTORY: 63-year-old female Seizure, headache. TECHNIQUE: Examination was done in axial plane without intravenous contrast. Coronal and sagittal r econstructions performed. CT DLP: 1105.4 mGycm Automated exposure control for dose reduction was used. FINDINGS: There is a focal 3.7 cm area of hypodensity anterior left parietal lobe resulting in asymmetric sulca l effacement in the adjacent parenchyma. No midline shift, herniation, or hydrocephalus. Remainder of the aguilar-white matter interface is maintained. No acute intracranial hemorrhage is seen. No extra-axial fluid collection. Paranasal sinuses and mastoid air cells are well pneumatized. Orbits and globes are intact. IMPRESSION: 1. A 3.7 cm abnormal hypodense lesion anterior left parietal lobe resulting in asymmetric sulcal effa cement of the adjacent parenchyma. Underlying mass/neoplasm and infectious etiologies such as cerebra l abscess are some differential considerations. Further workup with MRI without and with contrast is recommended along with neurosurgery evaluation. 2. No acute intracranial hemorrhage, midline shift or herniation.
[2024-03-12 20:11] VITALS: BP 110/57; PULSE 84; RESP 20
== END 2024-03-12 20:10 | disposition other institution (70) ==
LOC: EC 17:08
DX: G93.9 Disorder of brain, unspecified (principal); R00.1 Bradycardia, unspecified; Z91.011 Allergy to milk products; Z88.8 Allergy status to other drugs, medicaments and biological substances
CPT/HCPCS: 36415; 93005; 80053; 85025; 85610; 85730; 70450; 99291; 96374; 96375 ×2; 96361 ×2; J2060; J1100; J1953

== ENCOUNTER → 2024-03-24 | Outpatient (CLI) | payer MEDICARE ==
[2024-03-24 15:48] LABS: Prothrombin Time 10.5 sec (10.0-12.5)
[2024-03-24 15:52] LABS: Appearance,Urine Clear (Clear); Bacteria,Urine Rare /hpf; Bilirubin,Urine Negative (Negative); Blood,Urine Negative (Negative); Color,Urine Colorless; Glucose,Urine (UA) Negative (Negative); Ketones,Urine Negative (Negative); Leukocyte Esterase,Urine Moderate (Negative); Mucus,Urine Occasional /hpf; Nitrite,Urine Negative (Negative); PH, Urine 5.5 (5.0-8.0); Protein,Urine Negative (Negative); RBC,Urine 1 /hpf (0-5); Squamous Epithelial Cell,Urine <1 /hpf (0-4); Urobilinogen,Urine <2.0 mg/dL (<2.0); WBC,Urine 9 /hpf (0-5)
[2024-03-24 16:23] LABS: Partial Thromboplastin Time 21.6 sec (22.0-30.0)
--- NOTE | 2024-03-24 16:29 | XR ---
EXAMINATION TYPE: XR chest 2V DATE OF EXAM: 03/24/2024 COMPARISON: 08/11/2016 INDICATION: Presurgical testing TECHNIQUE: Frontal and lateral views of the chest are obtained. FINDINGS: The heart size is normal. The pulmonary vasculature is normal. The lungs are clear. IMPRESSION: 1. No acute pulmonary process.
[2024-03-24 18:29] LABS: Basophils # (A) 0.01 X 10*3/uL (0.00-0.10); Basophils % (A) 0.1 %; Eosinophils # (A) 0 X 10*3/uL (0.04-0.35); Eosinophils % (A) 0 %; HCT 40.2 % (37.2-46.3); HGB 13.3 g/dL (12.0-15.0); Lymphocytes # (A) 0.39 X 10*3/uL (0.90-5.00); Lymphocytes % (A) 3.9 %; MCHC 33.1 g/dL (32.0-37.0); MCV 93.7 FL (80.0-97.0); Mean Platelet Volume 10.2 FL (9.5-12.2); NRBC Per 100 WBC 0 X 10*3/uL (0.00-0.01); Neutrophils # (A) 8.92 X 10*3/uL (1.80-7.70); Neutrophils % (A) 88.9 %; Platelet Count 209 X 10*3/uL (140-440); RBC 4.29 X 10*6/uL (4.10-5.20); RDW 14.3 % (11.5-14.5); WBC 10.03 X 10*3/uL (4.50-10.00)
[2024-03-24 19:21] LABS: ALT 37 U/L (8-44); AST 15 U/L (13-35); Albumin 3.6 g/dL (3.8-4.9); Albumin/Globulin Ratio 1.89 Ratio (1.60-3.17); Alkaline Phosphatase 76 U/L (41-126); BUN/Creat Ratio 28.25 Ratio (12.00-20.00); Blood Urea Nitrogen 22.6 mg/dL (9.0-27.0); Calcium 8.5 mg/dL (8.7-10.3); Carbon Dioxide 21.9 mmol/L (21.6-31.8); Chloride 105 mmol/L (96-109); Globulin 1.9 g/dL (1.6-3.3); Glucose 108 mg/dL (70-110); Potassium 3.9 mmol/L (3.5-5.5); Sodium 138 mmol/L (135-145); Total Bilirubin 0.5 mg/dL (0.3-1.2); Total Protein 5.5 g/dL (6.2-8.2)
== END | disposition home or self-care (01) ==
LOC: LABWHC1 14:50
PROVIDERS: ATTEND Specialist
DX: C71.3 Malignant neoplasm of parietal lobe (principal)
CPT/HCPCS: 36415; 71046; 80053; 81001; 83036; 85025; 85610; 85730; 87070

== ENCOUNTER 2024-08-23 14:31 | Emergency (ER) | payer MEDICARE, OTHER ==
--- NOTE | 2024-08-23 14:48 | ED ---
Nausea/Vomiting/Diarrhea HPI - General Source: patient, family, RN notes reviewed Mode of arrival: wheelchair Limitations: no limitations - History of Present Illness MD complaint: nausea, vomiting, diarrhea Onset/Timin -: days(s) Description of Vomiting: watery, bilious Associated Abdominal Pain: No <Micky Rivas - Last Filed: 08/23/24 16:43> <Jerson Carnes - Last Filed: 08/23/24 20:06> - General Chief complaint: Nausea/Vomiting/Diarrhea Stated complaint: NVD Time Seen by Provider: 08/23/24 14:35 - History of Present Illness Initial comments: Quick note: This is a 63-year-old female presenting with family complaining of nausea, vomiting, diarrhea x 2 days. Patient endorses associated chills and decreased appetite. Denies recent sick contact, abnormal food intake. Patient states she has an order from her neurosurgeon who is requesting a brain CT with and without contrast to track progression following removal of brain tumor. Denies [id number] medication use. (Micky Rivas) This is a 63-year-old female who comes in complaining of nausea vomiting diarrhea for couple of days. Patient has a history of a brain tumor which has been surgically removed. Patient has been around some sick contacts recently. Patient denies any fever chills patient does complain of a mild headache. Patient also complains of significant nausea still. (Jerson Carnes) - Related Data Home Medications Medication Instructions Recorded Confirmed Irbesartan/Hydrochlorothiazide 1 tab PO QAM 02/21/17 12/17/18 [Irbesartan-Hctz 150-12.5 mg Tb] Levothyroxine Sodium [Synthroid] 75 mcg PO DAILY 06/18/18 12/17/18 LORazepam [Ativan] 1 mg PO HS 12/15/18 12/17/18 Multivitamins, Thera [Multivitamin 1 tab PO DAILY 12/15/18 12/17/18 (formulary)] Pantoprazole Sodium [Protonix] 40 mg PO BID 12/15/18 12/17/18 Allergies Allergy/AdvReac Type Severity Reaction Status Date / Time diazepam [From Valium] AdvReac Rash/Hives Verified 08/23/24 14:37 gabapentin AdvReac Unknown Verified 08/23/24 14:37 hydromorphone [From Dilaudid] AdvReac Vomiting Verified 08/23/24 14:37 lactose AdvReac Itching Verified 03/12/24 17:09 mirtazapine [From Remeron] AdvReac Unknown Verified 08/23/24 14:37 pregabalin [From Lyrica] AdvReac BLURRY Verified 03/12/24 17:09 VISION surgical steel AdvReac Rash/Hives Uncoded 08/23/24 14:37 Review of Systems ROS Other: All systems not noted in ROS Statement are negative. <Micky Rivas - Last Filed: 08/23/24 16:43> ROS Other: All systems not noted in ROS Statement are negative. <Jerson Carnes - Last Filed: 08/23/24 20:06> ROS Statement: Those systems with pertinent positive or pertinent negative responses have been documented in the HPI. Past Medical History Past Medical History: Asthma, Fibromyalgia, GERD/Reflux, Hypertension, Thyroid Disorder Additional Past Medical History / Comment(s): hypothyroidism, heart murmur, chronic dry cough since June, feels like something stuck in throat History of Any Multi-Drug Resistant Organisms: None Reported Past Surgical History: Hysterectomy, Orthopedic Surgery Additional Past Surgical History / Comment(s): sinus surgery X2, left thumb surgery, eye surgery, EGD, colonoscopy Past Anesthesia/Blood Transfusion Reactions: Previous Problems w/ Anesthesia Additional Past Anesthesia/Blood Transfusion Reaction / Comment(s): problem w/first endoscopy-felt like bad asthma attack- coughing & couldn't catch breath- was told was "muscle spasm"-next time had scope had nebulizer tx. beforehand & had no problems Past Psychological History: Anxiety, Depression Smoking Status: Never smoker Past Alcohol Use History: None Reported Past Drug Use History: None Reported - Past Family History Mother Family Medical History: Neurologic Disorder Father Family Medical History: No Reported History Brother(s) Family Medical History: Thyroid Disorder Sister(s) Family Medical History: No Reported History Daughter(s) Family Medical History: No Reported History Son(s) Family Medical History: No Reported History <Micky Rivas - Last Filed: 08/23/24 16:43> General Exam Limitations: no limitations <Micky Rivas - Last Filed: 08/23/24 16:43> <Jerson Carnes - Last Filed: 08/23/24 20:06> - General Exam Comments Initial Comments: Visual Physical Exam Vital signs reviewed General: Well-appearing, nontoxic, no acute distress. Head: Normocephalic, atraumatic Eyes: PERRLA, EOMI ENT: Airway patent Chest: Nonlabored breathing Skin: No visual rash, normal skin tone Neuro: Alert and oriented 3 Musculoskeletal: No gross abnormalities (Micky Rivas) GENERAL: Patient is well-developed and well-nourished. Patient is nontoxic and well- hydrated and is in mild distress. ENT: Neck is soft and supple. No significant lymphadenopathy is noted. Oropharynx is clear. Moist mucous membranes. Neck has full range of motion without eliciting any pain. EYES: The sclera were anicteric and conjunctiva were pink and moist. Extraocular movements were intact and pupils were equal round and reactive to light. Eyelids were unremarkable. PULMONARY: Unlabored respirations. Good breath sounds bilaterally. No audible rales rhonchi or wheezing was noted. CARDIOVASCULAR: There is a regular rate and rhythm without any murmurs gallops or rubs. ABDOMEN: Soft and nontender with normal bowel sounds. SKIN: Skin is clear with no lesions or rashes and otherwise unremarkable. NEUROLOGIC: Patient is alert and oriented x3. Cranial nerves II through XII are grossly intact. Motor and sensory are also intact. Normal speech, volume and content. Symmetrical smile. LYMPHATICS: No significant lymphadenopathy is noted PSYCHIATRIC: Normal psychiatric evaluation. (Jerson Carnes) Course Vital Signs 08/23/24 14:33 Temperature 96.9 F L Pulse Rate 102 H Respiratory 14 Rate Blood Pressure 112/77 O2 Sat by Pulse 96 Oximetry Medical Decision Making - Lab Data Result diagrams: 08/23/24 15:57 08/23/24 15:57 <Micky Rivas - Last Filed: 08/23/24 16:43> - Lab Data Result diagrams: 08/23/24 15:57 08/23/24 15:57 <Jerson Carnes - Last Filed: 08/23/24 20:06> - Medical Decision Making I completed the quick note portion of this chart signed ARISTIDES Ibanez (Micky Rivas) Was pt. sent in by a medical professional or institution (, [facility], PLUMBING ENGINEER, urgent care, hospital, or senior care...) When possible be specific No Did you speak to anyone other than the patient for history (EMS, parent, family, police, friend...)? What history was obtained from this source @ -No Did you review nursing and triage notes (agree or disagree)? Why? @ -I reviewed and agree with nursing and triage notes Were old charts reviewed (outside hosp., previous admission, EMS record, old EKG, old radiological studies, urgent care reports/EKG's, senior care records)? Report findings @ -No old charts were reviewed Differential Diagnosis? @ -Gastroenteritis, gastritis, recurrent brain tumor, intracranial hemorrhage, this is not an all-inclusive list EKG interpreted by me (3pts min.). @ -As above X-rays interpreted by me (1pt min.). @ -None done CT interpreted by me (1pt min.). @ -CT of the brain shows masslike area with adjacent vasogenic edema in the left parietal occipital region with mass effect on the adjacent brain and left lateral ventricle subfalcine herniation with midline shift 1.2 cm is present there is entrapment of the left temporal horn of the lateral ventricle a recurrent mass measuring 3.7 cm may be within the left parietal occipital region contributing to the vasogenic edema hypodense lesion more inferiorly within the proximal left temporal lobe may be present U/S interpreted by me (1pt. min.). @ -None done What testing was considered but not performed or refused? (CT, X-rays, U/S, labs)? Why? @ -None What meds were considered but not given or refused? Why? @ -None Did you discuss the management of the patient with other professionals (professionals i.e. , [facility], PLUMBING ENGINEER, lab, RT, psych nurse, social media strategist, sales utility representative, teacher, chief learning officer, caseworker protective services)? Give summary @ -I spoke with Dr. Sho jones at [facility]. She accepted the transfer Was smoking cessation discussed for >3mins.? @ -No Was critical care preformed (if so, how long)? @ -35 minutes Were there social determinants of health that impacted care today? How? (Homelessness, low income, unemployed, alcoholism, drug addiction, transportation, low edu. Level, literacy, decrease access to med. care, fci, rehab)? @ -No Was there de-escalation of care discussed even if they declined (Discuss DNR or withdrawal of care, Hospice)? DNR status @ -No What co-morbidities impacted this encounter? (DM, HTN, Smoking, COPD, CAD, Cancer, CVA, ARF, Chemo, Hep., AIDS, mental health diagnosis, sleep apnea, morbid obesity)? @ -None Was patient admitted / discharged? Hospital course, mention meds given and route, prescriptions, significant lab abnormalities, going to OR and other pertinent info. @ -Patient was in the waiting room for 5 hours before I saw that her CAT scan was done and I read the report immediately got her back into her room and set up transfer to [facility]. Radiology read the report on the CT but did not contact me to give me the results of the CAT scan though they were critical Undiagnosed new problem with uncertain prognosis? @ -No Drug Therapy requiring intensive monitoring for toxicity (Heparin, Nitro, Insulin, Cardizem)? @ -No Were any procedures done? @ -No Diagnosis/symptom? @ -Brain mass with vasogenic edema and midline shift Acute, or Chronic, or Acute on Chronic? @ -Acute on chronic Uncomplicated (without systemic symptoms) or Complicated (systemic symptoms)? @ -Complicated Side effects of treatment? @ -No Exacerbation, Progression, or Severe Exacerbation? @ -No Poses a threat to life or bodily function? How? (Chest pain, [place], [place], pneumonia, PE, COPD, DKA, ARF, appy, cholecystitis, CVA, Diverticulitis, Homicidal, Suicidal, threat to staff... and all critical care pts) @ -Yes this midline shift could cause further herniation and (Jerson Carnes) - Lab Data Lab Results 08/23/24 08/23/24 Range/Units 15:57 15:57 WBC 9.3 (3.8-10.6) k/uL RBC 4.63 (3.80-5.40) m/uL Hgb 14.3 (11.4-16.0) gm/dL Hct 44.1 (34.0-46.0) % MCV 95.1 (80.0-100.0) fL MCH 30.9 (25.0-35.0) pg MCHC 32.5 (31.0-37.0) g/dL RDW 15.2 (11.5-15.5) % Plt Count 256 (150-450) k/uL MPV 7.8 Neutrophils % 91 % Lymphocytes % 4 % Monocytes % 2 % Eosinophils % 2 % Basophils % 0 % Neutrophils # 8.4 H (1.3-7.7) k/uL Lymphocytes # 0.4 L (1.0-4.8) k/uL Monocytes # 0.2 (0-1.0) k/uL Eosinophils # 0.2 (0-0.7) k/uL Basophils # 0.0 (0-0.2) k/uL Sodium 142 (137-145) mmol/L Potassium 4.0 (3.5-5.1) mmol/L Chloride 107 (98-107) mmol/L Carbon Dioxide 26 (22-30) mmol/L Anion Gap 9 mmol/L BUN 14 (7-17) mg/dL Creatinine 0.66 (0.52-1.04) mg/dL Est GFR (CKD-EPI)AfAm >90 (>60 ml/min/1.73 sqM) Est GFR (CKD-EPI)NonAf >90 (>60 ml/min/1.73 sqM) Glucose 167 H (74-99) mg/dL Calcium 9.8 (8.4-10.2) mg/dL Total Bilirubin 0.6 (0.2-1.3) mg/dL AST 24 (14-36) U/L ALT 14 (4-34) U/L Alkaline Phosphatase 88 (38-126) U/L Total Protein 6.1 L (6.3-8.2) g/dL Albumin 3.7 (3.5-5.0) g/dL Amylase 41 (30-110) U/L Lipase 45 (23-300) U/L Disposition <Micky Rivas - Last Filed: 08/23/24 16:43> Time of Disposition: 20:06 - Out of Hospital Transfer - Req. Specs Out of Hospital Transfer - Requested Specifics: Other Emergency Center ([facility]) <Jerson Carnes - Last Filed: 08/23/24 20:06> Clinical Impression: Neoplasm of brain causing mass effect and brain compression on adjacent structures, Vasogenic edema Disposition: OTHER INSTITUTION NOT DEFINED Referrals: Mason Seo DO [Primary Care Provider] - 1-2 days
[2024-08-23 16:03] LABS: Basophils % (A) 0 %; Eosinophils # (A) 0.2 k/uL (0-0.7); Eosinophils % (A) 2 %; HCT 44.1 % (34.0-46.0); HGB 14.3 gm/dL (11.4-16.0); Lymphocytes # (A) 0.4 k/uL (1.0-4.8); Lymphocytes % (A) 4 %; MCH 30.9 pg (25.0-35.0); MCHC 32.5 g/dL (31.0-37.0); MCV 95.1 fL (80.0-100.0); Mean Platelet Volume 7.8; Monocytes # (A) 0.2 k/uL (0-1.0); Monocytes % (A) 2 %; Neutrophils # (A) 8.4 k/uL (1.3-7.7); Neutrophils % (A) 91 %; Platelet Count 256 k/uL (150-450); RBC 4.63 m/uL (3.80-5.40); RDW 15.2 % (11.5-15.5); WBC 9.3 k/uL (3.8-10.6)
[2024-08-23 16:37] LABS: ALT 14 U/L (4-34); AST 24 U/L (14-36); African American GFR (CKD) >90 (>60 ml/min/1.73 sqM); Albumin 3.7 g/dL (3.5-5.0); Alkaline Phosphatase 88 U/L (38-126); Amylase 41 U/L (30-110); Anion Gap 9 mmol/L; Blood Urea Nitrogen 14 mg/dL (7-17); Calcium 9.8 mg/dL (8.4-10.2); Carbon Dioxide 26 mmol/L (22-30); Chloride 107 mmol/L (98-107); Glucose 167 mg/dL (74-99); Lipase 45 U/L (23-300); Non-African American GFR(CKD) >90 (>60 ml/min/1.73 sqM); Sodium 142 mmol/L (137-145); Total Bilirubin 0.6 mg/dL (0.2-1.3); Total Protein 6.1 g/dL (6.3-8.2)
[2024-08-23] MEDS ORDERED: RX INFO: IV CONTRAST WAS GIVEN 1 EACH MISC MISCELLANE PRN (16:42)
--- NOTE | 2024-08-23 18:47 | CT ---
EXAMINATION TYPE: CT brain wo/w con DATE OF EXAM: 08/23/2024 6:24 PM COMPARISON: 03/12/2024 CLINICAL INDICATION: Female, 63 years old with history of History of cerebral hemorrhage, AMS/PREVIOU S CVA/BRAIN TUMOR REMOVED 03/2024 TECHNIQUE: CT of the brain is performed utilizing 3 mm thick sections through the posterior fossa and 3 mm thick sections through the remaining calvarium. Study is performed within 24 hours of arrival to the hospital. Contrast used:80ML mL of Isovue 300 without and with IV Contrast, (none if empty) CT DLP: 2173.6 mGycm, Automated exposure control for dose reduction was used. FINDINGS: No abnormal hyperdensity is present to suggest an acute intracranial hemorrhage. There may be a recurrent 3.7 cm mass within the left parietal-occipital region with adjacent vasogeni c edema. There is mass effect on the left lateral ventricle. Midline shift is present measuring 1.2 cm. No acute infarcts are evident. Ventricles and sulci are otherwise appropriate for the patient age. No right temporal horn dilatatio n is evident. There may be entrapment of the left temporal horn enlargement. Vasogenic edema extends through the left temporal lobe. Paranasal sinuses and mastoid air cells within the [id number] are clear. Prior left craniotomy is evident. IMPRESSION: 1. Masslike area with adjacent vasogenic edema in the left parietal-occipital region has mass effec t on the adjacent brain and left lateral ventricle. Subfalcine herniation with midline shift 1.2 cm i s present. There is entrapment of the left temporal horn of the lateral ventricle. Hydrocephalus is n ot otherwise apparent. 2. A recurrent mass measuring 3.7 cm may be within the left parietal-occipital region contributing to the vasogenic edema. Hypodense lesion more inferiorly within the proximal left temporal lobe may be present better visualize the coronal plate [facility], , 08/23/2024 6:44 PM
[2024-08-23] MEDS: ONDANSETRON 4 MG/2 ML VIAL IVP STA ×2 (19:42→19:59)
[2024-08-23] MEDS: SODIUM CHLORIDE 0.9% 1,000 ML IV STA (19:45)
[2024-08-23] MEDS: LORazepam 2 MG/ML INJ IV STA (19:49)
[2024-08-23] MEDS: DEXAMETHASONE SOD PHOSPHATE 10 MG/ML 1 ML VIAL IVP STA (19:55)
[2024-08-23 20:08] VITALS: BP 124/92; PULSE 93; RESP 18; TEMP 97.3
== END 2024-08-23 20:02 | disposition other institution (70) ==
LOC: EC 14:31
DX: C71.5 Malignant neoplasm of cerebral ventricle (principal); Z88.8 Allergy status to other drugs, medicaments and biological substances; Z88.9 Allergy status to unspecified drugs, medicaments and biological substances; Z91.011 Allergy to milk products
CPT/HCPCS: 36415; 80053; 82150; 83690; 85025; 70470; 99285; 96374; 96375 ×2; J2060; J1100; J2405; Q9967